=== PATIENT | female | born 2000 | race Caucasian/White ===

== ENCOUNTER 2020-02-22 18:37 | Emergency (ER) | payer BC ==
[2020-02-22 18:58] VITALS: BP 102/67; TEMP 97.5; O2SAT 99
--- NOTE | 2020-02-22 19:08 | ED.PDOC ---
History of Present Illness - General Chief Complaint: ENT Problem Stated Complaint: my left ear hurts Time Seen by Provider: 02/22/20 19:03 Source: patient - History of Present Illness Initial Comments: 20-year-old female who presents to the ED with chief complaint of left ear pain following tubing injury just prior to arrival. [place] and she fell on the left side of her head against the water. She reports acute sharp pain inside the left ear. Now she reports it is throbbing, constant, 6/10 severity, located inside the ear, nonradiating, no me dications taken for relief. She also reports slight decreased hearing loss in the left ear. She tried to put some alcohol into the ear canal but it caused sharp pain and seem to go "deeper than it should have." She reports that she ruptured the eardrum 6 years ago and is unsure if it ever healed from then. 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 Denies any fevers, chills, sore throat, cough, abdominal pain, nausea, vomiting. Reports she is on her last day of her period today. Allergies/Adverse Reactions: Allergies Azithromycin Allergy (Verified 02/22/20 18:58) Home Medications: Ambulatory Orders Amoxicillin & Pot Clavulanate [Augmentin Tab] 875 mg PO BID 7 Days #14 tab 02/22/20 Review of Systems - Review of Systems Review of Systems: 02/22/20 19:07 As per HPI All other Systems: Reviewed and Negative Past Medical History (General) - Patient Medical History Hx Seizures: No Hx Stroke: No Hx Dementia: No Hx Asthma: No Hx of COPD: No Hx Cardiac Disorders: No Hx Congestive Heart Failure: No Hx Pacemaker: No Hx Hypertension: No Hx Thyroid Disease: No Hx Diabetes: No Hx Gastroesophageal Reflux: No Hx Renal Disease: No Hx Cancer: No Hx of HIV: No Hx Hepatitis C: No Hx MRSA: No - Vaccination History Hx Tetanus, Diphtheria Vaccination: No Hx Influenza Vaccination: No Hx Pneumococcal Vaccination: No Immunizations Up to Date: No - Social History Hx Tobacco Use: No Hx Alcohol Use: Yes Hx Substance Use: Yes Hx Substance Use Treatment: No Hx Depression: No - Female History Patient is a Female of Child Bearing Age (10 -59 yrs old): Yes Patient : No Family Medical History - Family History Mother Family History: Unknown Physical Exam - Physical Exam General Appearance: Alert, Comfortable, No apparent distress Eye Exam: bilateral normal Ears, Nose, Throat: other - Hearing slightly decreased in left ear compared to right. The left ear on external inspection appears normal. The inspection of the left TM reveals moderately erythematous TM without bulging. There appears to be a tiny perforation at the 6 o'clock position of the TM. There is no noted discharge in the external auditory canal appears normal. 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 Considered also otitis externa, other injuries -Given erythematous TM, will cover with oral Augmentin twice daily for 7 days, first dose here. We will also give a dose of ibuprofen 800 mg p.o. for pain here. Advised to avoid any moisture into the ear and she will need follow-up with ENT in the next 2 to 3 weeks. -Discharge home in good condition Brian Coleman MD Billing #[id number] Departure - Departure Clinical Impression: Otitis media Qualifiers: Otitis media type: other nonsuppurative Chronicity: acute Laterality: left Recurrence: non-recurrent Qualified Code(s): H65.192 - Other acute nonsuppurative otitis media, left ear Traumatic perforation of tympanic membrane Qualifiers: Encounter type: initial encounter Laterality: left Qualified Code(s): S09.22XA - Traumatic rupture of left ear drum, initial encounter Time of Disposition: 19:10 Disposition: Discharge to Home or Self Care Condition: Good Departure Forms: ED Discharge - Pt. Copy, Patient Portal Self Enrollment Instructions: Serous Otitis Media (DC), Ruptured Eardrum (DC) Diet: resume usual diet Activity: increase activity as tolerated Prescriptions: Amoxicillin & Pot Clavulanate [Augmentin Tab] 875 mg PO BID 7 Days #14 tab Home Medications: Ambulatory Orders Amoxicillin & Pot Clavulanate [Augmentin Tab] 875 mg PO BID 7 Days #14 tab 02/22/20 Additional Instructions: Avoid any moisture getting into the left ear until cleared by ENT. Take the antibiotics as directed and finish the full course even if well. Continue to take [id number] medications for pain such as ibuprofen 600 mg every 6 hours and Tylenol 650 mg every 6 hours as needed. Return to the ED if your symptoms worsen or other concerning symptoms develop such as bleeding or discharge from the ear. Follow-up with ENT as recommended in the next 1 to 2 weeks or sooner as needed.
[2020-02-22] MEDS: IBUPROFEN 200 MG TAB PO ONE (19:17)
[2020-02-22] MEDS: AMOXICILLIN & POT CLAVULANATE 875 MG TAB PO ONE (19:18)
== END 2020-02-22 19:23 | disposition home or self-care (01) ==
LOC: ER 18:37
DX: H65.192 Other acute nonsuppurative otitis media, left ear (principal); S09.22XA Traumatic rupture of left ear drum, initial encounter; X58.XXXA Exposure to other specified factors, initial encounter; Y92.9 Unspecified place or not applicable